=== PATIENT | male | born 1960 | race Caucasian/White ===

== ENCOUNTER 2017-03-20 16:53 | Inpatient (IN) | payer OTHER ==
[~2017-03-20] VITALS: Ht 172.7 cm; Wt 78.5 kg
[2017-03-20 17:51] LABS: HEMOGLOBIN 16.5 gm/dl (14.0-17.5); RED BLOOD COUNT 5.22 M/UL (4.20-5.50); WHITE BLOOD COUNT 17.1 K/UL (4.5-11.0)
[2017-03-20 17:59] LABS: BUN/CREATININE RATIO 28 (0-10)
[2017-03-20] MEDS ORDERED: LISINOPRIL20 MG PO (20:54)
[2017-03-20] MEDS ORDERED: CLARITIN 10MG T10 MG PO (20:54)
[2017-03-20] MEDS ORDERED: OMEPRAZOLE40 MG PO (20:55)
[2017-03-20] MEDS ORDERED: VENTOLIN HFA 66.7 GM INH (20:55)
[2017-03-20] MEDS ORDERED: NEURONTIN 400400 MG PO (20:56)
[2017-03-20] MEDS ORDERED: AMITRIPTYLINE H25 MG PO (20:56)
[2017-03-20] MEDS ORDERED: NAPROXEN500 M1 PO (22:13)
[2017-03-21 04:36] LABS: RED BLOOD COUNT 4.77 M/UL (4.20-5.50); WHITE BLOOD COUNT 12.9 K/UL (4.5-11.0)
[2017-03-21 04:46] LABS: BUN/CREATININE RATIO 32 (0-10)
[2017-03-22 04:27] LABS: HEMOGLOBIN 13.5 gm/dl (14.0-17.5); RED BLOOD COUNT 4.3 M/UL (4.20-5.50)
[2017-03-22 04:28] LABS: WHITE BLOOD COUNT 18.8 K/UL (4.5-11.0)
[2017-03-22 04:59] LABS: BUN/CREATININE RATIO 32 (0-10)
[2017-03-23 04:08] LABS: HEMOGLOBIN 12.8 gm/dl (14.0-17.5); RED BLOOD COUNT 4.09 M/UL (4.20-5.50); WHITE BLOOD COUNT 17.3 K/UL (4.5-11.0)
[2017-03-23 04:27] LABS: BUN/CREATININE RATIO 33 (0-10)
[2017-03-24 03:41] LABS: HEMOGLOBIN 13.8 gm/dl (14.0-17.5); RED BLOOD COUNT 4.37 M/UL (4.20-5.50)
[2017-03-24 04:12] LABS: BUN/CREATININE RATIO 29 (0-10)
[2017-03-24] MEDS ORDERED: PREDNISONE10 MG PO (10:21)
[2017-03-24] MEDS ORDERED: LEVAQUIN500 MG PO (10:22)
[2017-03-24] MEDS ORDERED: TESSALON PERLE100 MG PO (10:24)
[2017-03-24] MEDS ORDERED: CATAPRES 0.1MG0.1 MG PO (10:24)
== END 2017-03-24 11:49 | disposition home or self-care (01) | DRG 871 ==
LOC: ER1 16:53 → PROG CARE 18:30 → ZEROF 18:30 → PROG CARE 19:55
PROVIDERS: Emergency Medicine; ADMIT Internal Medicine
DX: A41.9 Sepsis, unspecified organism (principal); J96.01 Acute respiratory failure with hypoxia; J18.9 Pneumonia, unspecified organism; J44.0 Chronic obstructive pulmonary disease with (acute) lower respiratory infection; J44.1 Chronic obstructive pulmonary disease with (acute) exacerbation; I16.0 Hypertensive urgency; R00.0 Tachycardia, unspecified; E78.5 Hyperlipidemia, unspecified; K21.9 Gastro-esophageal reflux disease without esophagitis; F17.210 Nicotine dependence, cigarettes, uncomplicated; N28.9 Disorder of kidney and ureter, unspecified; Z80.41 Family history of malignant neoplasm of ovary; Z82.49 Family history of ischemic heart disease and other diseases of the circulatory system; Z79.899 Other long term (current) drug therapy; R73.02 Impaired glucose tolerance (oral); G89.29 Other chronic pain; M54.9 Dorsalgia, unspecified; Z79.51 Long term (current) use of inhaled steroids
CPT/HCPCS: ECHO; 36415; 36600; 71010; 71020; 71250; 80048; 80053; 82550; 82553; 82803; 82962; 83605; 83735; 83874; 84484; 85025; 85027; 87040; 87070; 87205; 87278; 93005; 93306; 94640; 94660; 94664; 94760; 96374; 96375; 99285; J0456; J0696; J1650; J1940; J2920; J2930; J7030; J7050

== ENCOUNTER → 2017-04-06 | Outpatient (CLI) | payer OTHER ==
[~2017-04-06] MED LIST: AMITRIPTYLINE H25 MG PO; CATAPRES 0.1MG0.1 MG PO; CLARITIN 10MG T10 MG PO; LEVAQUIN500 MG PO; LISINOPRIL20 MG PO; NAPROXEN500 M1 PO; NEURONTIN 400400 MG PO; OMEPRAZOLE40 MG PO; PREDNISONE10 MG PO; TESSALON PERLE100 MG PO; VENTOLIN HFA 66.7 GM INH
== END ==
LOC: US 15:19
DX: N28.1 Cyst of kidney, acquired (principal)

== ENCOUNTER → 2021-04-11 | Outpatient (CLI) | payer OTHER | LOC: KOH-I 11:13 | DX: M51.16 Intervertebral disc disorders with radiculopathy, lumbar region (principal) | CPT/HCPCS: 72148 ==

== ENCOUNTER → 2021-05-05 | Outpatient (CLI) | payer OTHER | LOC: KOH-I 14:28 | DX: F17.210 Nicotine dependence, cigarettes, uncomplicated (principal); R91.1 Solitary pulmonary nodule | CPT/HCPCS: 71271 ==

== ENCOUNTER → 2022-01-09 | Outpatient (CLI) | payer OTHER | LOC: KOH-I 08:00 | DX: Z01.818 Encounter for other preprocedural examination (principal); M51.36 Other intervertebral disc degeneration, lumbar region; M48.061 Spinal stenosis, lumbar region without neurogenic claudication; M25.78 Osteophyte, vertebrae | CPT/HCPCS: 72131 ==

== ENCOUNTER → 2022-02-20 | Outpatient (CLI) | payer OTHER | LOC: HEART 5 09:51 | DX: R06.02 Shortness of breath (principal) | CPT/HCPCS: 94060; 94729 ==

== ENCOUNTER → 2022-03-19 | Outpatient (CLI) | payer OTHER | LOC: ECHO 09:00 | DX: Z01.810 Encounter for preprocedural cardiovascular examination (principal); I10 Essential (primary) hypertension | CPT/HCPCS: ECHO; 93306 ==

== ENCOUNTER → 2022-05-19 | Outpatient (CLI) | payer OTHER | LOC: KOH-I 12:33 | DX: M48.061 Spinal stenosis, lumbar region without neurogenic claudication (principal); M51.16 Intervertebral disc disorders with radiculopathy, lumbar region; M51.27 Other intervertebral disc displacement, lumbosacral region | CPT/HCPCS: 72148 ==

== ENCOUNTER → 2022-07-19 | Outpatient (CLI) | payer OTHER ==
[~2022-07-19] MED LIST changes: +ACETAMINOPHEN-1 EAC1 PO; +ADVAIR 500-501 EACH INH; +AMLODIPINE BESYL5 MG PO; +ATORVASTATIN CA40 MG PO; +COLACE100 MG PO; +FLONASE 0.05% N16 GM; +FLOVENT DISKUS50 MCG INH; -LISINOPRIL20 MG PO; +LISINOPRIL30 MG PO; +MUCINEX600 MG PO; +ROBAXIN 750 MG750 MG PO; +TAMSULOSIN HCL0.4 MG PO; +TOPAMAX50 MG PO; +XOPENEX HFA15 GM INH; +ZYRTEC10 MG PO
[2022-07-21 09:13] LABS: AMPHETAMINES, URINE Negative ng/mL (Cutoff=1000); BARBITURATE Negative ng/mL (Cutoff=200); BENZODIAZEPINES Negative ng/mL (Cutoff=200); CANNABINOIDS Negative ng/mL (Cutoff=20); COCAINE (METABOLITE) Negative ng/mL (Cutoff=300); CREATININE 40.6 mg/dL (20.0-300.0); MEPERIDINE Negative ng/mL (Cutoff=200); METHADONE Negative ng/mL (Cutoff=300); OPIATES Negative ng/mL (Cutoff=300); PHENCYCLIDINE Negative ng/mL (Cutoff=25); PROPOXYPHENE Negative ng/mL (Cutoff=300)
== END ==
LOC: LAB 08:39
PROVIDERS: Orthopaedic Surgery
DX: Z01.812 Encounter for preprocedural laboratory examination (principal)
CPT/HCPCS: 80048; 80307; 86850; 86900; 86901

== ENCOUNTER 2022-07-20 05:17 | Inpatient (IN) | payer OTHER ==
[~2022-07-20] VITALS: Ht 175.3 cm; Wt 81.6 kg
[~2022-07-20 05:17] MED LIST changes: -FLONASE 0.05% N16 GM
[2022-07-20 12:50] LABS: HEMOGLOBIN 13.7 gm/dl (14.0-17.5); RED BLOOD COUNT 4.25 M/UL (4.20-5.50); WHITE BLOOD COUNT 16.1 K/UL (4.5-11.0)
[2022-07-20 13:15] LABS: BUN/CREATININE RATIO 11 (0-10)
[2022-07-20] MEDS ORDERED: FLONASE 0.05% N16 GM (18:19)
[2022-07-21 04:53] LABS: HEMOGLOBIN 12.8 gm/dl (14.0-17.5); RED BLOOD COUNT 3.94 M/UL (4.20-5.50)
[2022-07-21 04:55] LABS: WHITE BLOOD COUNT 11.1 K/UL (4.5-11.0)
[2022-07-21 05:16] LABS: BUN/CREATININE RATIO 12 (0-10)
[2022-07-22 05:13] LABS: HEMOGLOBIN 12.7 gm/dl (14.0-17.5); RED BLOOD COUNT 3.86 M/UL (4.20-5.50); WHITE BLOOD COUNT 10.9 K/UL (4.5-11.0)
[2022-07-22 05:29] LABS: BUN/CREATININE RATIO 14 (0-10)
[2022-07-22 16:26] LABS: HEMOGLOBIN 10.5 gm/dl (14.0-17.5); RED BLOOD COUNT 3.22 M/UL (4.20-5.50); WHITE BLOOD COUNT 13.1 K/UL (4.5-11.0)
[2022-07-22 16:43] LABS: BUN/CREATININE RATIO 13 (0-10)
[2022-07-23 05:53] LABS: HEMOGLOBIN 9.3 gm/dl (14.0-17.5); WHITE BLOOD COUNT 15.9 K/UL (4.5-11.0)
[2022-07-23 05:54] LABS: RED BLOOD COUNT 2.85 M/UL (4.20-5.50)
[2022-07-23 06:04] LABS: BUN/CREATININE RATIO 13 (0-10)
[2022-07-24 05:19] LABS: RED BLOOD COUNT 2.78 M/UL (4.20-5.50); WHITE BLOOD COUNT 16.1 K/UL (4.5-11.0)
[2022-07-24 05:44] LABS: BUN/CREATININE RATIO 13 (0-10)
[2022-07-25 05:06] LABS: BUN/CREATININE RATIO 21 (0-10)
[2022-07-25 05:10] LABS: HEMOGLOBIN 9.3 gm/dl (14.0-17.5); RED BLOOD COUNT 2.88 M/UL (4.20-5.50); WHITE BLOOD COUNT 14.8 K/UL (4.5-11.0)
[2022-07-26 04:48] LABS: HEMOGLOBIN 8.9 gm/dl (14.0-17.5); RED BLOOD COUNT 2.79 M/UL (4.20-5.50); WHITE BLOOD COUNT 13.2 K/UL (4.5-11.0)
[2022-07-26 06:38] LABS: BUN/CREATININE RATIO 28 (0-10)
--- NOTE | 2022-07-26 16:28 | NUR ---
SURGICAL DRESSINGS CHANGED PER MD ORDER. INCISIONS PINK. NO DRAINAGE NOTED. PT TOLERATED WELL.
--- NOTE | 2022-07-26 18:57 | NUR ---
ATTEMPTED TO GET PT UP TO BATHROOM. AFTER STANDING UP HE HAD TO SIT BACK DOWN IN BED AND SAID THAT HE THOUGHT HE WAS GOING TO PASS OUT. NOTIFIED NEW ORDERS RECIEVED.
[2022-07-27 04:59] LABS: HEMOGLOBIN 8.8 gm/dl (14.0-17.5); RED BLOOD COUNT 2.73 M/UL (4.20-5.50); WHITE BLOOD COUNT 12.1 K/UL (4.5-11.0)
[2022-07-27 05:07] LABS: BUN/CREATININE RATIO 28 (0-10)
[2022-07-28 05:03] LABS: HEMOGLOBIN 8.6 gm/dl (14.0-17.5); RED BLOOD COUNT 2.63 M/UL (4.20-5.50); WHITE BLOOD COUNT 10.9 K/UL (4.5-11.0)
[2022-07-28 05:30] LABS: BUN/CREATININE RATIO 30 (0-10)
--- NOTE | 2022-07-28 11:18 | NUR ---
chart reviewed by Melissa Naranjo RN
[2022-07-29 07:51] LABS: HEMOGLOBIN 9.1 gm/dl (14.0-17.5); RED BLOOD COUNT 2.83 M/UL (4.20-5.50); WHITE BLOOD COUNT 12.8 K/UL (4.5-11.0)
[2022-07-29 08:02] LABS: BUN/CREATININE RATIO 28 (0-10)
[2022-07-30 14:21] LABS: HEMOGLOBIN 9.2 gm/dl (14.0-17.5); RED BLOOD COUNT 2.83 M/UL (4.20-5.50); WHITE BLOOD COUNT 13.6 K/UL (4.5-11.0)
[2022-07-30 14:40] LABS: BUN/CREATININE RATIO 26 (0-10)
--- NOTE | 2022-07-31 04:02 | NUR ---
PATIENT WAS SUPPOSE TO RECIEVE A FLEETS ENEMA ON 07/30/22 ON DAY SHIFT. PATIENT SAID HE DID NOT WANT THE ENEMA RIGHT THEN BECAUSE HE WAS HAVING COMPANY AND TO COME BACK LATER. WHEN I WENT IN AFTER THE COMPANY LEFT AND ASKED THE PATIENT IF THEY WOULD LIKE ENEMA NOW THE PATIENT TOLD ME THAT HE DID NOT WANT IT BECAUSE HE WAS HURTING TOO BAD. NURSE COULD NOT CHART NOT GIVEN BECAUSE THE MEDICATION HAD BEEN D/C'D. PHARMACY MADE AWARE, PIANO [employer] MADE AWARE.
[2022-07-31] MEDS ORDERED: ROXICODONE5 MG PO (07:46)
[2022-07-31 08:04] LABS: HEMOGLOBIN 9.4 gm/dl (14.0-17.5); WHITE BLOOD COUNT 13.1 K/UL (4.5-11.0)
[2022-07-31 08:40] LABS: BUN/CREATININE RATIO 27 (0-10)
[2022-08-02 02:31] LABS: HEMOGLOBIN 9.9 gm/dl (14.0-17.5); RED BLOOD COUNT 3.06 M/UL (4.20-5.50); WHITE BLOOD COUNT 14.2 K/UL (4.5-11.0)
[2022-08-02 02:59] LABS: BUN/CREATININE RATIO 27 (0-10)
[2022-08-03 03:15] LABS: HEMOGLOBIN 9.7 gm/dl (14.0-17.5); RED BLOOD COUNT 3.03 M/UL (4.20-5.50); WHITE BLOOD COUNT 15.1 K/UL (4.5-11.0)
[2022-08-03 03:17] LABS: BUN/CREATININE RATIO 28 (0-10)
--- NOTE | 2022-08-03 12:50 | NUR ---
ISLAND DRESSING APPLIED TO BACK AND BETADINE APPLIED TO MARY LOU/WOUND AREA. ALSO DRY ISLAND DRESSING APPLIED TO LEFT FLANK WOUND
[2022-08-04 03:09] LABS: HEMOGLOBIN 10.1 gm/dl (14.0-17.5); RED BLOOD COUNT 3.18 M/UL (4.20-5.50)
[2022-08-04 03:36] LABS: BUN/CREATININE RATIO 28 (0-10)
--- NOTE | 2022-08-04 15:14 | NUR ---
REPORT CALLED TO [facility] NOTIFIED AND EMS STATES WILL SEND SOMEBODY OVER
--- NOTE | 2022-08-04 15:15 | NUR ---
PT'S DRESSING CHANGED PER MD ORDERS
== END 2022-08-04 16:40 | disposition short-term general hospital (02) | DRG 454 ==
LOC: OR 05:17 → CCU 13:48 → M/S 07-28 06:50
PROVIDERS: Internal Medicine; Nurse Practitioner Family; ADMIT Orthopaedic Surgery
PROC: 0SG10A0 Fusion of 2 or more Lumbar Vertebral Joints with Interbody Fusion Device, Anterior Approach, Anterior Column, Open Approach (ICD-10-PCS; principal; 2022-07-20 07:30)
PROC: 0SG1071 Fusion of 2 or more Lumbar Vertebral Joints with Autologous Tissue Substitute, Posterior Approach, Posterior Column, Open Approach (ICD-10-PCS; 2022-07-22)
PROC: 01NB0ZZ Release Lumbar Nerve, Open Approach (ICD-10-PCS; 2022-07-22)
PROC: 009U3ZZ Drainage of Spinal Canal, Percutaneous Approach (ICD-10-PCS; 2022-07-22)
PROC: B01B1ZZ Fluoroscopy of Spinal Cord using Low Osmolar Contrast (ICD-10-PCS; 2022-07-22)
PROC: 3E0U3GB Introduction of Recombinant Bone Morphogenetic Protein into Joints, Percutaneous Approach (ICD-10-PCS; 2022-07-22)
PROC: 4A11X4G Monitoring of Peripheral Nervous Electrical Activity, Intraoperative, External Approach (ICD-10-PCS; 2022-07-22)
PROC: 0SG804Z Fusion of Left Sacroiliac Joint with Internal Fixation Device, Open Approach (ICD-10-PCS; 2022-07-22)
PROC: 0SG704Z Fusion of Right Sacroiliac Joint with Internal Fixation Device, Open Approach (ICD-10-PCS; 2022-07-22)
PROC: 0ST20ZZ Resection of Lumbar Vertebral Disc, Open Approach (ICD-10-PCS; 2022-07-22)
PROC: 0ST40ZZ Resection of Lumbosacral Disc, Open Approach (ICD-10-PCS; 2022-07-22)
PROC: 0SG3071 Fusion of Lumbosacral Joint with Autologous Tissue Substitute, Posterior Approach, Posterior Column, Open Approach (ICD-10-PCS; 2022-07-22)
DX: M48.061 Spinal stenosis, lumbar region without neurogenic claudication (principal); D62 Acute posthemorrhagic anemia; K56.7 Ileus, unspecified; N17.9 Acute kidney failure, unspecified; K59.00 Constipation, unspecified; M54.16 Radiculopathy, lumbar region; I10 Essential (primary) hypertension; R00.0 Tachycardia, unspecified; K21.9 Gastro-esophageal reflux disease without esophagitis; F17.210 Nicotine dependence, cigarettes, uncomplicated; M54.9 Dorsalgia, unspecified; G89.29 Other chronic pain; M47.896 Other spondylosis, lumbar region; F43.9 Reaction to severe stress, unspecified; N40.0 Benign prostatic hyperplasia without lower urinary tract symptoms; J44.9 Chronic obstructive pulmonary disease, unspecified; K08.89 Other specified disorders of teeth and supporting structures; Z90.49 Acquired absence of other specified parts of digestive tract; Z87.01 Personal history of pneumonia (recurrent)
CPT/HCPCS: 36415; 71045; 71275; 72100; 72110; 72131; 74018; 76000; 80048; 80053; 80307; 81001; 83735; 84439; 84443; 85025; 85027; 85379; 87040; 93880; 93970; 94640; 94664; 94760; 97116; 97116-GP-CQ; 97162; 97164; 97165; 97168; 97530; 97530-GP-CQ; 97535; C1713; C1762; C1776; J0171; J0330; J0360; J0690; J1040; J1100; J1170; J1644; J2001; J2250; J2370; J2405; J2704; J2710; J3010; J3370; J7040; P9045; Q9967; U0002